=== PATIENT | female | born 1980 | race Caucasian/White ===

== ENCOUNTER 2021-07-02 19:45 | Emergency (ER) | payer MEDICAID ==
[2021-07-02] MEDS ORDERED: Ibuprofen 600 MG Tab PO ONE (20:19)
--- NOTE | 2021-07-02 20:22 | EDM.PDOC ---
ED HPI GENERAL MEDICAL PROBLEM - General Chief Complaint: Lower Extremity Injury/Pain Stated Complaint: TWISTED RIGHT KNEE Time Seen by Provider: 07/02/21 20:20 Source of Information: Reports: Patient History Limitations: Reports: No Limitations - History of Present Illness INITIAL COMMENTS - FREE TEXT/NARRATIVE: pt was helping at the [employer] AND SHE SLIPPED AND TWISTED HER RT KNEE. sHE HAS SLIGHT SWELLING AND SHE FEELS LIKE THE KNEE IS UNSTABLE WHEN SHE GOES TO WALK. Onset: Sudden Duration: Hour(s): Location: Reports: Lower Extremity, Right Associated Symptoms: Reports: No Other Symptoms - Related Data Allergies Allergy/AdvReac Type Severity Reaction Status Date / Time Sulfa (Sulfonamide Allergy Severe Hives Verified 07/02/21 20:03 Antibiotics) amoxicillin Allergy Hives Verified 07/02/21 20:03 Home Meds: Home Meds amLODIPine [Norvasc] 5 mg PO DAILY 07/02/21 [History] desogestreL-ethinyl estradioL [[place] 28 Day Tablet] 1 tab PO DAILY 07/02/21 [History] Past Medical History HEENT History: Reports: Impaired Vision Cardiovascular History: Reports: Heart Murmur, Hypertension [employer] MANAGER History: Reports: None, Endometriosis, , Spontaneous Endocrine/Metabolic History: Reports: Obesity/BMI 30+, Other (See Below) Other Endocrine/Metabolic History: enlarged thyroid - Infectious Disease History Infectious Disease History: Reports: Chicken Pox - Past Surgical History Female Surgical History: Reports: D&C, Other (See Below) Other Female Surgeries/Procedures: some kind of uterine surgery exploratory Social & Family History - Tobacco Use Tobacco Use Status *Q: Never Tobacco User Review of Systems - Review of Systems Review Of Systems: See Below Constitutional: Reports: No Symptoms Eyes: Reports: No Symptoms Ears: Reports: No Symptoms Nose: Reports: No Symptoms Mouth/Throat: Reports: No Symptoms Respiratory: Reports: No Symptoms Cardiovascular: Reports: No Symptoms Musculoskeletal: Reports: Other (PAIN ON THE LATERAL ASPECT OF THE RT KNEE. ) Skin: Reports: No Symptoms Neurological: Reports: No Symptoms ED EXAM, GENERAL - Physical Exam Exam: See Below Free Text/Narrative:: pt was helping at the barn and she twisted her left knee. She is now having slight swelling on the lateral aspect. Exam Limited By: No Limitations General Appearance: Alert, Anxious Ears: Normal TMs Extremities: Other ( slight swelling on the lateral aspect , tender to palpate. No discoloration. Pt has pain with flexion. She does feel unstable when she tries to weight bear on the knee. ) Neurological: Alert, Oriented, Normal Cognition Course - Vital Signs Last Recorded V/S: Last Vital Signs Temp 36.8 C 07/02/21 20:07 Pulse 116 H 07/02/21 20:07 Resp 19 07/02/21 20:07 BP 153/92 H 07/02/21 20:07 Pulse Ox 99 07/02/21 20:07 - Orders/Labs/Meds Meds: Medications Discontinued Medications Generic Name Dose Route Start Last Admin Trade Name Freq PRN Reason Stop Dose Admin Ibuprofen 600 mg 07/02/21 20:19 07/02/21 20:25 Ibuprofen 600 Mg Tab PO 07/02/21 20:20 600 mg ONETIME ONE Administration - Re-Assessments/Exams Free Text/Narrative Re-Assessment/Exam: 07/02/21 20:55 xray reveals no fracture. Departure - Departure Time of Disposition: 21:11 Disposition: Home, Self-Care 01 Condition: Fair Clinical Impression: Lateral collateral ligament sprain of knee - Discharge Information Referrals: Elder Tanner MD [Primary Care Provider] - Forms: ED Department Discharge Care Plan Goals: minimal weight bearing, cool pack, knee imbolizer which the pt has. orthopedic consult. norco 12/ to 1 tab q6h prn for pain, motrin inbetween pain meds. Sepsis Event Note (ED) - Evaluation Sepsis Screening Result: No Definite Risk - Focused Exam Vital Signs: Vital Signs Temp Pulse Resp BP Pulse Ox 07/02/21 20:07 36.8 C 116 H 19 153/92 H 99 07/02/21 20:06 36.8 C 116 H 19 153/92 H 99
--- NOTE | 2021-07-02 21:00 | CRLCR ---
For Patients: As a result of the Cures Act, medical imaging exams and procedure reports are released immediately into your electronic medical record. You may view this report before your referring provider. If you have questions, please contact your health care provider. HISTORY: Pain. TECHNIQUE: Four views of the right knee. COMPARISON: No prior. FINDINGS: No acute fracture or malalignment. Minor degenerative changes. No suprapatellar joint effusion. No erosive change or chondrocalcinosis. IMPRESSION: 1. No acute fracture or malalignment. 2. Minor degenerative changes. Dictated by Dar Jane MD @ 07/02/2021 8:59:11 PM Dictated by: Dar Jane MD @ 07/02/2021 20:59:18 (Electronically Signed)
== END 2021-07-02 21:22 | disposition home or self-care (01) ==
LOC: JP.ED 19:45
DX: S83.421A Sprain of lateral collateral ligament of right knee, initial encounter (principal); I10 Essential (primary) hypertension; E66.9 Obesity, unspecified; Z68.30 Body mass index [BMI] 30.0-30.9, adult; Z88.0 Allergy status to penicillin; Z88.2 Allergy status to sulfonamides; X50.1XXA Overexertion from prolonged static or awkward postures, initial encounter; Y92.009 Unspecified place in unspecified non-institutional (private) residence as the place of occurrence of the external cause
CPT/HCPCS: 73564; 99283; A9270

== ENCOUNTER 2024-03-27 15:07 | Emergency (ER) | payer BC, OTHER ==
[2024-03-27 16:25] LABS: LYME AB IgG Negative (Negative); LYME AB IgM Negative (Negative)
== END 2024-03-27 16:45 | disposition home or self-care (01) ==
LOC: JP.ED 15:07
DX: G51.0 Bell's palsy (principal); I10 Essential (primary) hypertension; E66.9 Obesity, unspecified; Z79.899 Other long term (current) drug therapy; Z68.29 Body mass index [BMI] 29.0-29.9, adult; Z88.2 Allergy status to sulfonamides; Z88.0 Allergy status to penicillin; Z88.8 Allergy status to other drugs, medicaments and biological substances
CPT/HCPCS: 36415; 70450; 70450-26; 86618; 99284